=== PATIENT | female | born 1960 | race Caucasian/White ===

== ENCOUNTER → 2017-07-19 | Outpatient (CLI) | payer BC ==
--- NOTE | 2017-07-19 16:28 | MAMMOGRAPHY REPORT ---
BILATERAL DIGITAL SCREENING MAMMOGRAM TOMOSYNTHESIS WITH CAD: 07/19/2017 CLINICAL HISTORY: Routine screening. Patient has no complaints. TECHNIQUE: Breast tomosynthesis in addition to standard 2D mammography was performed. Current study was also evaluated with a Computer Aided Detection (CAD) system. COMPARISON: Comparison is made to exams dated: 07/15/2015 mammogram, 07/18/2016 mammogram, 07/14/2014 m ammogram, 07/12/2013 mammogram, 07/10/2012 mammogram, and 07/05/2011 mammogram - [facility]. BREAST COMPOSITION: There are scattered areas of fibroglandular density in both breasts. FINDINGS: No suspicious masses, calcifications, or areas of architectural distortion are noted in ei ther breast. There has been no significant interval change compared to prior exams. IMPRESSION: ACR BI-RADS CATEGORY 1: NEGATIVE There is no mammographic evidence of malignancy. A 1 year screening mammogram is recommended. The pa tient will receive written notification of the results. Approximately 10% of breast cancers are not detected with mammography. A negative mammographic report should not delay biopsy if a clinically suggestive mass is present. Pia Lopez M.D. /:07/19/2017 14:34:39 Country Printer: Flaquita Espinoza, M, [facility] letter sent: Normal 1/2 BI-RADS Code: ACR BI-RADS Category 1: Negative
== END | disposition home or self-care (01) ==
LOC: C.MAMM 09:10
PROVIDERS: ATTEND Internal Medicine
DX: Z12.31 Encounter for screening mammogram for malignant neoplasm of breast (principal)

== ENCOUNTER 2020-04-04 20:32 | Inpatient (IN) ==
[2020-04-04] MEDS ORDERED: MoRPHine SULFATE 2 MG/ML CARP IV STA (21:39)
[2020-04-04] MEDS ORDERED: ONDANSETRON INJ 2 MG/ML 2 ML VIAL IV STA (21:39)
[2020-04-04 21:59] LABS: Basophils # (auto) 0.02 K/uL (0-0.2); Basophils % (auto) 0.2 %; Eosinophils # (auto) 0.06 K/uL (0-0.5); Eosinophils % (auto) 0.5 %; Hematocrit (blood only) 41.3 % (37-47); Hemoglobin 14.1 g/dL (12.0-16.0); Immature Granulocytes # (auto) 0.03 K/uL (0.00-0.02); Immature Granulocytes % (auto) 0.2 %; Lymphocytes # (auto) 1.52 K/uL (1.2-3.4); Lymphocytes % (auto) 12.1 %; Mean Corpuscular Hemoglobin 31.1 pg (25-34); Mean Corpuscular Hgb Conc 34.1 g/dL (32-36); Mean Corpuscular Volume 91.2 fL (80-100); Monocytes % (auto) 4.8 %; Neutrophils # (auto) 10.34 K/uL (1.4-6.5); Neutrophils % (auto) 82.2 %; Platelet Count 296 K/uL (130-400); RDW Standard Deviation 40.3 fL (36.4-46.3); Red Blood Count 4.53 M/uL (4.2-5.4); White Blood Count 12.57 K/uL (4.8-10.8)
--- NOTE | 2020-04-04 21:59 | Emergency Department Note ---
History of Present Illness General Chief complaint: Abdominal Pain Stated complaint: PAIN IN ABDOMEN Time Seen by Provider: 04/04/20 21:31 History of Present Illness Maximum Pain Intensity: 7 This is a 59-year-old female that presents to the emergency department via private vehicle with complaints of "pain in abdomen". The patient states that yesterday she began with some right upper quadrant abdominal pain. No known trauma or injury. There is associated nausea. She tried [place] and it did help a little bit. She then notes that she went to bed this past evening around 11 PM and then awoke around 1:15 AM with persistence of right upper quadrant abdominal pain. She notes that she has had abdominal surgeries in the past but still has the gallbladder. She then tried Pepcid and [place] again and there was some minimal improvement. Then around 8 PM this evening the pain worsened after she ate some toast therefore prompting her arrival here today. She points to a bandlike area of pain from the epigastric region through the right upper quadrant into the back. Discomfort is an 8/10. No chest pain, shortness of breath, fevers or chills. Home Medications Home Medications Medication Instructions Recorded Confirmed Type estradiol 0.5 mg PO BID 04/04/20 04/04/20 History progesterone micronized 100 mg PO HS 04/04/20 04/04/20 History Allergies Allergy/AdvReac Type Severity Reaction Status Date / Time No Known Allergies Allergy Unverified 04/04/20 23:25 Past Med/Surg History Medical History No pertinent past medical history Surgical History Hx of abdominal surgery Social History Preferred Language: Colombian Feels Safe at Home: Yes Smoking Status: Never smoker Review of Systems A total of 10 systems reviewed and were otherwise negative Physical Exam Vital Signs Vital Signs - 24 hr 04/04/20 20:44 04/04/20 21:51 04/04/20 22:00 Temperature 36.6 C Temperature Source Oral Pulse Rate 105 H 95 H 102 H Pulse Rate from SpO2 Sensor 95 H 102 H Respiratory Rate 18 24 23 Respiratory Depth Normal Blood Pressure 162/76 H 137/79 129/70 Blood Pressure Mean 104 101 85 Pulse Oximetry 100 100 96 Oxygen Delivery Method Room Air Room Air Sepsis Recent Fever Within 48 Hours No Sepsis New/Unexplained Change in Mental Status No Sepsis Action Taken by Nursing No Action Required 04/04/20 23:00 04/04/20 23:31 04/05/20 00:00 Temperature Temperature Source Pulse Rate 94 H 106 H 101 H Pulse Rate from SpO2 Sensor 95 H 105 H 101 H Respiratory Rate 19 13 17 Respiratory Depth Blood Pressure 121/74 121/69 124/75 Blood Pressure Mean 90 91 86 Pulse Oximetry 97 95 95 Oxygen Delivery Method Sepsis Recent Fever Within 48 Hours Sepsis New/Unexplained Change in Mental Status Sepsis Action Taken by Nursing VITAL SIGNS - Vital signs and nursing notes were reviewed. Stable and afebrile. GENERAL -59-year-old female appearing her stated age who is in no acute distress. Communicates well with provider and answers questions appropriately. SKIN - Without rashes. No meningeal or petechial rash. HEAD - NC/AT. EYES - PERRL with EOMI bilaterally. Sclera anicteric. EARS - No deformities of external structures noted on gross examination bilaterally. NOSE - Midline and without cyanosis. No epistaxis or purulent drainage noted. Septum midline without deviation or septal hematoma noted. MOUTH/OROPHARYNX - Without perioral cyanosis. Buccal mucosa pink and moist and without leukoplakia. Tongue midline with equal elevation of palate bilaterally. No tonsillar hypertrophy, erythema, or exudates noted. Good dentition noted. NECK - Neck with FROM. Supple to palpation. No lymphadenopathy noted. No nuchal rigidity. LUNGS - Chest wall symmetric without accessory muscle use, intercostals retractions, or central cyanosis. Normal vesicular breath sounds CTA B/L. No wheezes, rales, or rhonchi appreciated. CARDIAC - RRR with S1/S2. No murmur, rubs, or gallops appreciated. ABDOMEN - Abdominal contour normal without pulsations or visible masses. BS normoactive all four quadrants. There is right upper quadrant abdominal tenderness to palpation. There is no rigidity. The abdomen is soft. No palpable masses, hepatosplenomegaly, or ascites noted. EXTREMITIES - No clubbing or peripheral cyanosis. PSYCH - A&O, and cooperates fully with examiner. Pt is very pleasant and interacts well with examiner. Course Administered Medications Discontinued Medications Morphine Sulfate (Morphine Sulfate) 2 mg IV NOW STA Stop: 04/04/20 21:40 Last Admin: 04/04/20 21:52 Dose: 2 mg Documented by: [id number] Ondansetron HCl (Zofran) 4 mg IV NOW STA Stop: 04/04/20 21:40 Last Admin: 04/04/20 21:52 Dose: 4 mg Documented by: [id number] Medical Decision Making Laboratory Data Result diagrams: 04/04/20 21:32 04/04/20 21:32 Lab Results 04/04/20 04/04/20 04/04/20 Range/Units 21:32 21:32 21:36 WBC 12.57 H (4.8-10.8) K/uL RBC 4.53 (4.2-5.4) M/uL Hgb 14.1 (12.0-16.0) g/dL Hct 41.3 (37-47) % MCV 91.2 (80-100) fL MCH 31.1 (25-34) pg MCHC 34.1 (32-36) g/dL RDW Std Deviation 40.3 (36.4-46.3) fL RDW Coeff of Alfredo 12.0 (11.5-14.5) % Plt Count 296 (130-400) K/uL MPV 10.0 (7.4-10.4) fL Immature Gran % (Auto) 0.2 % Neut % (Auto) 82.2 % Lymph % (Auto) 12.1 % Cobb % (Auto) 4.8 % Eos % (Auto) 0.5 % Baso % (Auto) 0.2 % Immature Gran # (Auto) 0.03 H (0.00-0.02) K/uL Neut # (Auto) 10.34 H (1.4-6.5) K/uL Lymph # (Auto) 1.52 (1.2-3.4) K/uL Cobb # (Auto) 0.60 H (0.11-0.59) K/uL Eos # (Auto) 0.06 (0-0.5) K/uL Baso # (Auto) 0.02 (0-0.2) K/uL Sodium 138 (136-145) mmol/L Potassium 3.5 (3.5-5.1) mmol/L Chloride 104 (98-107) mmol/L Carbon Dioxide 27 (21-32) mmol/L Anion Gap 7.0 (3-11) BUN 7 (7-18) mg/dl Creatinine 0.83 (0.6-1.2) mg/dl Est Cr Clr Drug Dosing 72.2 ml/min Est GFR ( Amer) 90.7 Est GFR (Non-Af Amer) 78.3 BUN/Creatinine Ratio 8.8 L (10-20) Glucose 153 H (70-99) mg/dl Calcium 8.9 (8.5-10.1) mg/dl Magnesium 2.0 (1.8-2.4) mg/dl Total Bilirubin 1.3 H (0.2-1) mg/dl AST 226 H (15-37) U/L ALT 107 H (12-78) U/L Alkaline Phosphatase 128 H (45-117) U/L Troponin I < 0.015 (0-0.045) ng/ml Total Protein 7.8 (6.4-8.2) gm/dl Albumin 3.7 (3.4-5.0) gm/dl Globulin 4.1 H (2.5-4.0) gm/dl Albumin/Globulin Ratio 0.9 (0.9-2) Lipase 141 (73-393) U/L Urine Color Dark Yellow Urine Appearance Cloudy A (Clear) Urine pH 7.5 (4.5-7.5) Ur Specific [place] 1.022 (1.000-1.030) Urine Protein Negative (Negative) Urine Glucose (UA) Negative (Negative) Urine Ketones Trace H (Negative) Urine Blood Negative (Negative) Urine Nitrite Negative (Negative) Urine Bilirubin 1+ H (Negative) Urine Urobilinogen Negative (Negative) Ur Leukocyte Esterase 1+ H (Negative) Urine WBC (Auto) 5-10 H (0-5) /hpf Urine RBC (Auto) 0-4 (0-4) /hpf U Hyaline Cast (Auto) 5-10 H (0-5) /lpf U Epithel Cells (Auto) >30 H (0-5) /lpf Urine Bacteria (Auto) Negative (Negative) Imaging Data Radiologist's Impression: SINGLE VIEW CHEST CLINICAL HISTORY: Right upper quadrant abdominal pain. FINDINGS: An AP, portable, upright chest radiograph is obtained. No prior studies are available for comparison at the time of dictation. The cardiom ediastinal silhouette is unremarkable. There is mild elevation of the right hemidiaphragm. The lungs and pleural spaces are clear. No pneumothorax is seen. The bony thorax is grossly intact. IMPRESSION: No active disease in the chest. ACT 112: Negative or not required by law. Electronically signed by: Jose Antonio Jaime M.D. 04/04/2020 10:04 PM ULTRASOUND RIGHT UPPER QUADRANT ABDOMEN CLINICAL HISTORY: Right upper quadrant abdominal pain. COMPARISON STUDY: No priors. TECHNIQUE: Real-time, grayscale, and color flow sonography of the right upper quadrant of the abdomen was performed. Images are reviewed in the transverse and longitudinal planes. FINDINGS: Liver: The liver is normal in size and echotexture. There is no intrahepatic biliary ductal dilatation. The main portal vein is patent. Gallbladder: The gallbladder is distended and there are numerous shadowing calcified gallstones. There is no gallbladder wall thickening or pericholecystic fluid. A sonographic Landry's sign is reportedly absent. The common bile duct measures up to 0.3 cm in diameter. Pancreas: Visualized portions of the pancreatic head and body are normal in appearance. The splenic vein is patent. Right kidney: Survey images of the right kidney demonstrate normal size and echotexture. There is no hydronephrosis. Ascites: None. IMPRESSION: Cholelithiasis within a distended gallbladder. There is no definitive sonographic evidence of acute cholecystitis. Clinical correlation will be required, and if there is strong clinical concern for acute cholecystitis a nuclear hepatobiliary scan could be considered. ACT 112: Negative or not required by law. Electronically signed by: Jose Antonio Jaime M.D. 04/04/2020 10:43 PM [facility] Narrative Patient was seen and evaluated as above in room C 12. Review was performed of nursing notes and vital signs. After obtaining a thorough history and physical examination the above work up was performed. She presents to us today with right upper quadrant/epigastric abdominal discomfort. This is worse postprandia lly. No chest pain, shortness of breath, fevers or chills. There is right upper quadrant abdominal tenderness on examination. IV access was established. Labs were drawn. She was medicated with IV morphine and Zofran. There is mild leukocytosis of 12.57 without anemia. No emergent metabolic disturbance. Glucose 153 with T bili at 1.3, with elevation of AST and ALT. Urinalysis does not suggest infection. Ultrasound was obtained of the gallbladder which shows cholelithiasis with a distended gallbladder. No definite sonographic evidence of acute cholecystitis. However, there is clinical concern for developing gallbladder etiology therefore I do believe that further evaluation in the inpatient setting is warranted. Patient was amenable to staying. A chest x-ray was also obtained and was negative. An EKG was also obtained given the location of the discomfort and this reveals normal sinus rhythm at a rate of 96 bpm. No ectopy or ischemic change. No previous for comparison. Case discussed with the hospitalist. Please refer to further documentation regarding her stay. Case was discussed with the attending physician. GCS: 15 In the evaluation and treatment of this patient, the following differential diagnoses were considered: ASC, [place], Pneumonia, GERD, Cholecystitis, Ascending Cholangitis, Cholydocholithiasis, Bowel Obstruction, PE, Amongst Others. Impression & Plan Abdominal pain, acute, right upper quadrant, Elevated LFTs, Total bilirubin, elevated Discharge Plan Visit Data Chief Complaint: Abdominal Pain Stated Complaint: PAIN IN ABDOMEN ED Provider: Jsoe Antonio Lino ED Midlevel Provider: Elvis Leong Discharge Problem: Abdominal pain, acute, right upper quadrant, Elevated LFTs, Total bilirubin, elevated Patient Disposition: Admitted As Inpatient Condition: Good Forms Stand Alone Forms: My [facility] [address], Important Visit Information Prescriptions Prescriptions: No Action estradiol 0.5 mg tablet 0.5 mg PO BID RF: 0 progesterone micronized 100 mg capsule 100 mg PO HS RF: 0 Referrals Referrals: Vidal Ordaz Jr, DO [Primary Care Provider] -
[2020-04-04 22:04] LABS: Appearance Urine Cloudy (Clear); Bacteria Urine Automated Negative (Negative); Blood Urine Negative (Negative); Color Urine Dark Yellow; Epithelial Cell Urine Auto >30 /lpf (0-5); Glucose Urine UA Negative (Negative); Ketones Urine Trace (Negative); Leukocyte Esterase Urine 1+ (Negative); Nitrite Urine Negative (Negative); Protein Urine Negative (Negative); RBC Urine Automated 0-4 /hpf (0-4); Specific Gravity Urine 1.022 (1.000-1.030); Urobilinogen Urine Negative (Negative); pH Urine 7.5 (4.5-7.5)
[2020-04-04 22:05] LABS: Bilirubin Urine 1+ (Negative)
--- NOTE | 2020-04-04 22:05 | XRay Report ---
SINGLE VIEW CHEST CLINICAL HISTORY: Right upper quadrant abdominal pain. FINDINGS: An AP, portable, upright chest radiograph is obtained. No prior studies are available for c omparison at the time of dictation. The cardiomediastinal silhouette is unremarkable. There is mild elevation of the right hemidiaphragm. The lungs and pleural spaces are clear. No pneumothorax is seen . The bony thorax is grossly intact. IMPRESSION: No active disease in the chest. ACT 112: Negative or not required by law. Electronically signed by: Jose Antonio Jaime M.D. 04/04/2020 10:04 PM
[2020-04-04 22:06] LABS: Alanine Aminotransferase 107 U/L (12-78); Albumin Level 3.7 gm/dl (3.4-5.0); Aspartate Aminotransferase 226 U/L (15-37); BUN Creatinine Ratio 8.8 (10-20); Blood Urea Nitrogen 7 mg/dl (7-18); Calcium 8.9 mg/dl (8.5-10.1); Carbon Dioxide 27 mmol/L (21-32); Chloride 104 mmol/L (98-107); Creatinine Clr Calc Pharmacy 72.2 ml/min; Est GFR (African American) 90.7; Est GFR (Non-African American) 78.3; Glucose 153 mg/dl (70-99); Lipase 141 U/L (73-393); Potassium 3.5 mmol/L (3.5-5.1); Sodium 138 mmol/L (136-145)
[2020-04-04 22:06] LABS: Ictotest Urine Positive (Negative)
[2020-04-04 22:11] LABS: Albumin Globulin Ratio 0.9 (0.9-2); Alkaline Phosphatase 128 U/L (45-117); Bilirubin,Total 1.3 mg/dl (0.2-1); Globulin 4.1 gm/dl (2.5-4.0); Total Protein 7.8 gm/dl (6.4-8.2); Troponin I < 0.015 ng/ml (0-0.045)
--- NOTE | 2020-04-04 22:44 | Ultrasound Report ---
ULTRASOUND RIGHT UPPER QUADRANT ABDOMEN CLINICAL HISTORY: Right upper quadrant abdominal pain. COMPARISON STUDY: No priors. TECHNIQUE: Real-time, grayscale, and color flow sonography of the right upper quadrant of the abdomen was performed. Images are reviewed in the transverse and longitudinal planes. FINDINGS: Liver: The liver is normal in size and echotexture. There is no intrahepatic biliary ductal dilatatio n. The main portal vein is patent. Gallbladder: The gallbladder is distended and there are numerous shadowing calcified gallstones. Ther e is no gallbladder wall thickening or pericholecystic fluid. A sonographic Landry's sign is reported ly absent. The common bile duct measures up to 0.3 cm in diameter. Pancreas: Visualized portions of the pancreatic head and body are normal in appearance. The splenic v ein is patent. Right kidney: Survey images of the right kidney demonstrate normal size and echotexture. There is no hydronephrosis. Ascites: None. IMPRESSION: Cholelithiasis within a distended gallbladder. There is no definitive sonographic evidenc e of acute cholecystitis. Clinical correlation will be required, and if there is strong clinical conc celeste for acute cholecystitis a nuclear hepatobiliary scan could be considered. ACT 112: Negative or not required by law. Electronically signed by: Jose Antonio Jaime M.D. 04/04/2020 10:43 PM
--- NOTE | 2020-04-05 00:52 | Surgery Consultation ---
Date of Consultation April 05, 2020 Assessment & Plan (1) Cholelithiases: -pt. to be admitted by medicine: -as cholecystitis not conformed on US they hav ordered HIDA scan -due to elevated LFTS MRCP has been ordered to evaluate for choledocholithiasis -npo status -IVF for hydration -pending above studies with plan for cholecystectomy Supervising Physician Co-Signing Physician Notes Patient seen and examined, labs and imaging reviewed, agree with above. 59-year-old otherwise healthy female presented to the emergency department with epigastric and right upper quadrant abdominal pain. Ultrasound revealed cholelithiasis with likely cholecystitis. She was admitted to the medicine service and due to elevation in her transaminases an MRCP was ordered which showed no filling defect but a slightly dilated common bile duct. Her repeat liver enzymes this morning were trending upward. On exam she is afebrile with stable vitals. Her abdomen is soft, tender to palpation in the right upper quadrant with negative Landry sign, no guarding. Her ALT and AST are up trending and her T bili is stable. After discussion of the case with GI, we will plan for an ERCP by GI followed by laparoscopic cholecystectomy with possible cholangiogram. Plan for laparoscopic cholecystectomy with possible cholangiogram. GI will perform an ERCP prior to this. The risk of the procedure were discussed to include but not limited to bleeding, infection, retained stone, bile leak, conversion to open, damage to surrounding structures including common bile duct, need for future or more extensive surgery, and the risk of anesthesia The diagnosis, details of the procedure and recovery, and plan of care discussed the patient, all questions were answered, the patient expressed understanding and agrees the plan of care as stated History of Present Illness History of Present Illness 59 year old female was in usual sate of health until yesterday when she felt some epigastric pain that she thought was GERD. She took an antacid with some relief, but her pain became progressively worse. The pain is in the epigastric area and RUQ and radiate to right shoulder. In the ED, GB US showed gallstones without definite cholecystitis. LFTs were noted to be elevated. Lipase is noted to be normal. Allergies Allergy/AdvReac Type Severity Reaction Status Date / Time No Known Allergies Allergy Unverified 04/04/20 23:25 Home Medications Home Medications Medication Instructions Recorded Confirmed Type estradiol 0.5 mg PO BID 04/04/20 04/04/20 History progesterone micronized 100 mg PO HS 04/04/20 04/04/20 History Patient History Medical History No pertinent past medical history Surgical History Hx of abdominal surgery Social History Preferred Language: Macedonian Communication Ability: Effective Road Driver Required: No Beliefs That Will Affect Care: None Current Living Situation: Spouse Feels Safe at Home: Yes Safety Concerns: Feels Safe At This Time Smoking Status: Never smoker Do You Dip or Chew Tobacco: No ; Hx Alcohol Use: Yes Alcohol type: beer Hx Substance Use: No Review of Systems Constitutional: no fever and no chills Eyes: no diplopia Ear, Nose, Mouth, Throat: no ear pain Respiratory: no cough and no dyspnea Cardiovascular: no chest pain Gastrointestinal: + abdominal pain and + nausea; no vomiting Genitourinary: no dysuria Musculoskeletal: no back pain Integumentary: no rash Neurologic: no localized weakness Physical Exam Constitutional: well developed and well nourished; no acute distress Eyes: no conjunctival abnormality no jaundice ENMT: Ears: no hearing impairment no sublingual jaundice Neck: trachea midline Respiratory: normal respiratory effort, lungs clear to auscultation Cardiovascular: Rate/Rhythm: regular rate and regular rhythm Vessels: posterior tibial pulses present and radial pulses present Gastrointestinal (Abdomen): Percussion/Palpation: + abdomen tender (RUQ and epigatsric regions; no rebound tenderness) and abdomen soft Musculoskeletal: no calf tenderess Skin: no rashes, warm and dry Neurologic: moves all extremities Psychiatric: A+Ox3, euthymic affect Results & Data Vital Signs (Past 12 Hours) Vital Signs Temp Pulse Resp BP Pulse Ox 04/05/20 00:00 101 H 17 124/75 95 04/04/20 23:31 106 H 13 121/69 95 04/04/20 23:00 94 H 19 121/74 97 04/04/20 22:00 102 H 23 129/70 96 04/04/20 21:51 95 H 24 137/79 100 04/04/20 20:44 36.6 C 105 H 18 162/76 H 100 PG Care Time/CCT Total # of Minutes Spent Total Time Spent with Patient: Total time spent is greater than 50% in coordination of care (as documented) at patient's floor/unit and/or counseling patient: Coding Level of Care Code 00032 Inpt Consult Level 5 Diagnoses Cholelithiases K80.20
[2020-04-05] MEDS ORDERED: MoRPHine SULFATE 4 MG/ML 1 ML CARP\\VIAL IV PRN ×2 (02:08→15:55)
[2020-04-05] MEDS ORDERED: PIPERACILL/TAZOBAC CONSULT ACTIVE PRN (02:08)
[2020-04-05] MEDS ORDERED: PIPERACILLIN/TAZOBACTAM 3.375 GM in DEXTROSE 5% 100 ML IV ONE (02:30)
[2020-04-05] MEDS: NSS + 20MEQ KCL 20 MEQ/1,000 ML BAG IV SCH ×2 (02:39→16:34)
--- NOTE | 2020-04-05 04:40 | History & Physical Report ---
Date of Service April 05, 2020 Assessment & Plan (1) Abdominal pain, acute, right upper quadrant: Acute right upper quadrant abdominal pain/distended gallbladder on imaging/elevated transaminases and bilirubin/cholelithiasis on imaging/ with leukocytosis- Patient has undergone gallbladder ultrasound which showed cholelithiasis and distended gallbladder. MRCP demonstrates similar findings, without abnormal findings in biliary ductal system. Hold on ordering NM HIDA scan. NPO NSS + KCl 20 mEq 100 mils per hour. Famotidine 20 mg IV every 12 hours. Zosyn 3.375 mg IV every 8 hours Zofran 4 mg IV every 6 hours PRN Acetaminophen 0.15 mg IV every 8 hours PRN mild pain or temperature. Consult general surgery. Consult gastroenterology. Present on Admission?: Yes (2) Gallbladder anomaly: See above Present on Admission?: Yes (3) Elevated LFTs: See above Present on Admission?: Yes (4) Total bilirubin, elevated: See above Present on Admission?: Yes (5) Cholelithiases: See above Present on Admission?: Yes (6) Leukocytosis: See above Present on Admission?: Yes (7) Hyperglycemia: Blood sugar 153 upon admission. We will check hemoglobin A1c Present on Admission?: Yes Admission and Anticipated Discharge Date Admission Date: April 05, 2020 Anticipated date of discharge: 04/07/20 History of Present Illness Chief Complaint: The patient presents to the emergency department with complaint of pain in epigastric area and right upper quadrant of abdomen that began the previous evening, accompanied by nausea without vomiting. Primary Care Provider: Vidal Ordaz Jr, DO .The patient is a 59-year-old female with a past medical history including HRT. She presents to the emergency department symptoms as noted above. She describes the pain is a worse that she is never experienced, including that of delivery. She had no improvement with Pepcid or [place] because of worsening pain, presented emergency department for assessment. In the emergency department, patient underwent work-up including laboratories with the following significant abnormalities: WBC 12.57, glucose 153, total bilirubin 1.3, AST 226, ALT 107, alk phos 128 and globulin 4.1. Imaging studies included a normal chest x-ray and a gallbladder ultrasound which had impression of cholelithiasis within a distended gallbladder, with no definitive sonographic evidence of acute cholecystitis. Patient then underwent an MRCP, which also demonstrated cholelithiasis within a distended gallbladder, and did not find obstruction in the biliary ductal system. Allergies Allergy/AdvReac Type Severity Reaction Status Date / Time No Known Allergies Allergy Unverified 04/04/20 23:25 Home Medications Home Medications Medication Instructions Recorded Confirmed Type estradiol 0.5 mg PO BID 04/04/20 04/04/20 History progesterone micronized 100 mg PO HS 04/04/20 04/04/20 History Past Med/Surg History Medical History No pertinent past medical history Surgical History Hx of abdominal surgery Social History Preferred Language: Malian Communication Ability: Effective Chief Investment Officer Required: No Beliefs That Will Affect Care: None Current Living Situation: Spouse Feels Safe at Home: Yes Safety Concerns: Feels Safe At This Time Smoking Status: Never smoker Hx Alcohol Use: Yes Alcohol type: beer Hx Substance Use: No Review of Systems Review of Systems: The patient denies chest pain, palpitations, shortness of breath, dyspnea on exertion, cough, lower extremity swelling, sore throat, fevers, chills, sweats, vomiting, blood in urine or stool, dysuria, urinary frequency or urgency, lightheadedness, dizziness, headache, memory loss, loss of consciousness, rash, abnormal bruising or bleeding, imbalance, focal or generalized weakness, numbness or tingling in arms or legs, generalized arthralgias or myalgias, back or neck pain, or night sweats. The review of systems is otherwise negative other than for that already noted above, and at least 10 systems have been reviewed. Physical Exam Physical Exam: The patient is awake, alert and oriented 3, well developed and well nourished, normocephalic and atraumatic, lying in bed and in no acute distress, after receiving IV Dilaudid. HEENT--PERRL, EOMI, mucous membranes and oropharynx. Neck--supple. No JVD. No bruits. Thyroid normal, trachea midline, no adenopathy. Heart--normal S1 and S2. No murmurs, rubs or gallops. Lungs--clear bilaterally, no respiratory distress, no accessory muscle use. Abdomen--normal bowel sounds and soft. Nondistended. Nontender after receiving IV Dilaudid Extremities--no cyanosis or clubbing. No edema. Dermatologic--normal skin turgor, normal color, no abnormal lymph nodes, no rash. Neurologic--cranial nerves II through XII grossly intact. Rheumatologic--normal range of motion. Psychiatric--normal affect. Results & Data Results & Data ([facility]) Vital Signs (Past 12 Hours) Vital Signs Temp Pulse Pulse Resp BP BP Pulse Ox 04/05/20 02:13 98.4 F 95 H 16 124/75 96 04/05/20 01:38 103 H 18 109/69 97 04/05/20 01:00 97 H 20 115/72 04/05/20 00:31 104 H 18 115/84 94 04/05/20 00:00 101 H 17 124/75 95 04/04/20 23:31 106 H 13 121/69 95 04/04/20 23:00 94 H 19 121/74 97 04/04/20 22:00 102 H 23 129/70 96 04/04/20 21:51 95 H 24 137/79 100 04/04/20 20:44 97.9 F 105 H 18 162/76 H 100 Laboratory Results Laboratory Results WBC 12.57 K/uL (4.8-10.8) H 04/04/20 21:32 RBC 4.53 M/uL (4.2-5.4) 04/04/20 21:32 Hgb 14.1 g/dL (12.0-16.0) 04/04/20 21:32 Hct 41.3 % (37-47) 04/04/20 21:32 MCV 91.2 fL (80-100) 04/04/20 21:32 MCH 31.1 pg (25-34) 04/04/20 21: MCHC 34.1 g/dL (32-36) 04/04/20 21:32 RDW Std Deviation 40.3 fL (36.4-46.3) 04/04/20 21:32 RDW Coeff of Alfredo 12.0 % (11.5-14.5) 04/04/20 21:32 Plt Count 296 K/uL (130-400) 04/04/20 21:32 MPV 10.0 fL (7.4-10.4) 04/04/20 21:32 Immature Gran % (Auto) 0.2 % 04/04/20 21:32 Neut % (Auto) 82.2 % 04/04/20 21:32 Lymph % (Auto) 12.1 % 04/04/20:32 [place] % (Auto) 4.8 % 04/04/20 21:32 Eos % (Auto) 0.5 % 04/04/20:32 Baso % (Auto) 0.2 % 04/04/20: Immature Gran # (Auto) 0.03 K/uL (0.00-0.02) H 04/04/20 21:32 Neut # (Auto) 10.34 K/uL (1.4-6.5) H 04/04/20:32 Lymph # (Auto) 1.52 K/uL (1.2-3.4) 04/04/20 21:32 [place] # (Auto) 0.60 K/uL (0.11-0.59) H 04/04/20 21:32 Eos # (Auto) 0.06 K/uL (0-0.5) 04/04/20: Baso # (Auto) 0.02 K/uL (0-0.2) 04/04/20 21:32 Sodium 138 mmol/L (136-145) 04/04/20 21:32 Potassium 3.5 mmol/L (3.5-5.1) 04/04/20: Chloride 104 mmol/L (98-107) 04/04/20: Carbon Dioxide 27 mmol/L (21-32) 04/04/20 21:32 Anion Gap 7.0 (3-11) 04/04/20 21:32 BUN 7 mg/dl (7-18) 04/04/20:32 Creatinine 0.83 mg/dl (0.6-1.2) 04/04/20: Est Cr Clr Drug Dosing 72.2 ml/min 04/04/20 21:32 Est GFR ( Amer) 90.7 04/04/20 21:32 Est GFR (Non-Af Amer) 78.3 04/04/20 21:32 BUN/Creatinine Ratio 8.8 (10-20) L 04/04/20 21:32 Glucose 153 mg/dl (70-99) H 04/04/20 21:32 Calcium 8.9 mg/dl (8.5-10.1) 04/04/20 21:32 Magnesium 2.0 mg/dl (1.8-2.4) 04/04/20 21:32 Total Bilirubin 1.3 mg/dl (0.2-1) H 04/04/20 21:32 AST 226 U/L (15-37) H 04/04/20 21:32 ALT 107 U/L (12-78) H 04/04/20 21:32 Alkaline Phosphatase 128 U/L (45-117) H 04/04/20 21:32 Troponin I < 0.015 ng/ml (0-0.045) 04/04/20 21:32 Total Protein 7.8 gm/dl (6.4-8.2) 04/04/20 21:32 Albumin 3.7 gm/dl (3.4-5.0) 04/04/20 21:32 Globulin 4.1 gm/dl (2.5-4.0) H 04/04/20 21:32 Albumin/Globulin Ratio 0.9 (0.9-2) 04/04/20 21:32 Lipase 141 U/L (73-393) 04/04/20 21:32 Urine Color Dark Yellow 04/04/20 21:36 Urine Appearance Cloudy (Clear) A 04/04/20 21:36 Urine pH 7.5 (4.5-7.5) 04/04/20 21:36 Ur Specific [place] 1.022 (1.000-1.030) 04/04/20 21:36 Urine Protein Negative (Negative) 04/04/20 21:36 Urine Glucose (UA) Negative (Negative) 04/04/20 21:36 Urine Ketones Trace (Negative) H 04/04/20 21:36 Urine Blood Negative (Negative) 04/04/20 21:36 Urine Nitrite Negative (Negative) 04/04/20 21:36 Urine Bilirubin 1+ (Negative) H 04/04/20 21:36 Urine Urobilinogen Negative (Negative) 04/04/20 21:36 Ur Leukocyte Esterase 1+ (Negative) H 04/04/20 21:36 Urine WBC (Auto) 5-10 /hpf (0-5) H 04/04/20 21:36 Urine RBC (Auto) 0-4 /hpf (0-4) 04/04/20 21:36 U Hyaline Cast (Auto) 5-10 /lpf (0-5) H 04/04/20 21:36 U Epithel Cells (Auto) >30 /lpf (0-5) H 04/04/20 21:36 Urine Bacteria (Auto) Negative (Negative) 04/04/20 21:36 Diagnostic Findings [place], [place] [phone] XRay Report Patient: KARIE ROTH Date: 04/04/20 MR#: [id number]: [address] Acct ID:[id number]: Date: 1960[facility] Zip: [place] [address] Age: 59Location: ED Sex: F Room/Bed: Att Phy:Diagnosis: PAIN IN ABDOMEN [place] Phy: Vidal Ordaz Jr, DOService Date: 04/04/20 Fam Phy:Interpreting Phy: Jose Antonio Jaime MD Admit Phy: Ordering Phy: Elvis Leong PA-C cc: ~ SINGLE VIEW CHEST CLINICAL HISTORY: Right upper quadrant abdominal pain. FINDINGS: An AP, portable, upright chest radiograph is obtained. No prior studies are available for comparison at the time of dictation. The cardiomediastinal silhouette is unremarkable. There is mild elevation of the right hemidiaphragm. The lungs and pleural spaces are clear. No pneumothorax is seen. The bony thorax is grossly intact. IMPRESSION: No active disease in the chest. ACT 112: Negative or not required by law. Electronically signed by: Jose Antonio Jaime M.D. 04/04/2020 10:04 PM Dictated: 04/04/202200 Transcribed: 04/04/202200 [place], [place] [phone] Ultrasound Report Patient: KARIE ROTH Date: 04/04/20 MR#: [id number]: [address] Acct ID:[id number]: Date: 1960[facility] Zip: [place] [address] Age: 59Location: ED Sex: F Room/Bed: Att Phy:Diagnosis: PAIN IN ABDOMEN [place] Phy: Vidal Ordaz Jr, DOService Date: 04/04/20 [facility] Phy:Interpreting Phy: Jose Antonio Jaime MD Admit Phy: Ordering Phy: Elvis Leong PA-C cc: ~ ULTRASOUND RIGHT UPPER QUADRANT ABDOMEN CLINICAL HISTORY: Right upper quadrant abdominal pain. COMPARISON STUDY: No priors. TECHNIQUE: Real-time, grayscale, and color flow sonography of the right upper quadrant of the abdomen was performed. Images are reviewed in the transverse and longitudinal planes. FINDINGS: Liver: The liver is normal in size and echotexture. There is no intrahepatic biliary ductal dilatation. The main portal vein is patent. Gallbladder: The gallbladder is distended and there are numerous shadowing calcified gallstones. There is no gallbladder wall thickening or pericholecystic fluid. A sonographic Landry's sign is reportedly absent. The common bile duct measures up to 0.3 cm in diameter. Pancreas: Visualized portions of the pancreatic head and body are normal in appearance. The splenic vein is patent. Right kidney: Survey images of the right kidney demonstrate normal size and echotexture. There is no hydronephrosis. Ascites: None. IMPRESSION: Cholelithiasis within a distended gallbladder. There is no definitive sonographic evidence of acute cholecystitis. Clinical correlation will be required, and if there is strong clinical concern for acute cholecystitis a nuclear hepatobiliary scan could be considered. ACT 112: Negative or not required by law. Electronically signed by: Jose Antonio Jaime M.D. 04/04/2020 10:43 PM Dictated: 04/04/202240 Transcribed: 04/04/20 224 [facility] Patient: KARIE ROTH (Female) : 64 Status: ER Date: 04/05/20 02:05 Room #: a12 History: Abdominal pain, abnormal LFT, acute cholecystitis, tsd PT was located in the ER and was transferred to [facility] Slices: [phone] Priors: Tech: Cristóbal Hernandez @ Exams: MRCP Accession Numbers: [id number] Preliminary Findings Only See Final Report For Complete Findings MRCP : Subcentimeter cholelithiasis noted in the fully distended gallbladder. No choledocholithiasis or biliary dilatation. The visible left and right intrahepatic biliary ducts are unremarkable. The cystic duct is unremarkable. The pancreatic duct is unremarkable. Incidental trace perihepatic fluid in the right upper quadrant. The kidneys, spleen and pancreas are otherwise unremarkable. Radiologist: Desmond Tavares MD Study ready at 02:09 and initial results transmitted at 02:19 *This report constitutes a preliminary interpretation only. Non-acute findings felt to be unrelated to the clinical presentation may not be discussed in this report. The study will be interpreted and a final report will be generated by the local Radiologist the following shift. To reach the hospital radiology department call [phone]. If a discrepancy is found between the preliminary and final interpretations of this study, please notify us via our Client Portal at [email or web address], under QA Exams.You can also fax this report with a description of the discrepancy, or include the final report, to our daytime fax number [phone].If faxing, please indicate the severity of discrepancy using one of the following categories: [ ] 1 - Agree/Informational [ ] 2 - Unlikely to Affect Management [ ] 3 - Possible Eventual Change of Management [ ] 4 - Probable Immediate Change of Management For all other patient related information, please fax us at [phone]. [id number] Code Status & VTE Plan Code Status Full code VTE Prophylaxis Plan VTE Prophylaxis will be ordered: Yes PG Care Time/CCT Total # of Minutes Spent Total Time Spent with Patient: Total time spent is greater than 50% in coordination of care (as documented) at patient's floor/unit and/or counseling patient: Coding Level of Care Code 15484 Initial Inpt Care Lvl 3 Diagnoses Abdominal pain, acute, right upper quadrant R10.11 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
[2020-04-05 05:53] LABS: Basophils # (auto) 0.01 K/uL (0-0.2); Basophils % (auto) 0.2 %; Eosinophils # (auto) 0.07 K/uL (0-0.5); Eosinophils % (auto) 1.1 %; Hematocrit (blood only) 35.4 % (37-47); Hemoglobin 12.1 g/dL (12.0-16.0); Immature Granulocytes # (auto) 0.01 K/uL (0.00-0.02); Immature Granulocytes % (auto) 0.2 %; Lymphocytes # (auto) 1.52 K/uL (1.2-3.4); Lymphocytes % (auto) 22.9 %; Mean Corpuscular Hemoglobin 31.3 pg (25-34); Mean Corpuscular Hgb Conc 34.2 g/dL (32-36); Mean Corpuscular Volume 91.7 fL (80-100); Mean Platelet Volume 9.5 fL (7.4-10.4); Monocytes # (auto) 0.52 K/uL (0.11-0.59); Monocytes % (auto) 7.8 %; Neutrophils # (auto) 4.52 K/uL (1.4-6.5); Neutrophils % (auto) 67.8 %; Platelet Count 257 K/uL (130-400); RDW Coefficient of Variation 12.3 % (11.5-14.5); RDW Standard Deviation 41.7 fL (36.4-46.3); Red Blood Count 3.86 M/uL (4.2-5.4); White Blood Count 6.65 K/uL (4.8-10.8)
[2020-04-05 06:02] LABS: Prothrombin Time 10.5 Seconds (9.0-12.0)
[2020-04-05 06:32] LABS: Albumin Globulin Ratio 0.8 (0.9-2); Bilirubin,Total 1.3 mg/dl (0.2-1); Calcium 8.4 mg/dl (8.5-10.1); Creatinine Clr Calc Pharmacy 79.4 ml/min; Est GFR (African American) 104.2; Est GFR (Non-African American) 89.9; Globulin 3.6 gm/dl (2.5-4.0); Potassium 4.1 mmol/L (3.5-5.1); Total Protein 6.6 gm/dl (6.4-8.2)
--- NOTE | 2020-04-05 06:47 | Anesthesiology Consultation ---
Date of Service April 05, 2020 Assessment & Plan (1) Encounter for pre-operative examination: Chart Review Chart Review: Acceptable Risk for Surgery and Patient NOT seen in Pre Admission Testing Consults Requested none History Surgery Operation Date: 04/05/20 08:00 Proposed Procedures p Laparoscopic Cholecystectomy - Olayinka Muse DO, SYDNEE Height/Weight Height: 5 ft 2 in Weight: 74.7 kg Allergies Allergy/AdvReac Type Severity Reaction Status Date / Time No Known Allergies Allergy Unverified 04/04/20 23:25 Medications Home Medications Medication Instructions Recorded Confirmed Last Taken estradiol 0.5 mg PO BID 04/04/20 04/04/20 04/04/20 progesterone micronized 100 mg PO HS 04/04/20 04/04/20 04/03/20 Active Medications Generic Name Dose Route Start Last Admin Trade Name Freq PRN Reason Stop Dose Admin Famotidine 20 mg/ Syringe 5 mls @ 2.5 mls/min 04/05/20 09:00 04/05/20 08:30 IV 05/05/20 08:59 2.5 mls/min Q12 MISAEL Administration Potassium Chloride/Sodium Chloride 20 meq in 1,000 mls @ 100 mls/hr 04/05/20 02:08 04/05/20 12:09 Normal Saline W/20 Meq Kcl IV 05/05/20 02:07 Infused .Q10H MISAEL Infusion Piperacillin Sod/Tazobactam 115 mls @ 28.75 mls/hr 04/05/20 08:00 04/05/20 12:09 Sod 3.375 gm/ Dextrose IV 04/15/20 07:59 Infused Q8H MISAEL Infusion Protocol Social History Smoking Status: Never smoker Do You Dip or Chew Tobacco: No Hx Alcohol Use: Yes Alcohol type: beer alcohol intake frequency: a few times a week Hx Substance Use: No Physical Exam Vital Signs Last Vital Signs Temp 36.7 C 04/05/20 07:11 Pulse 81 04/05/20 07:11 Resp 18 04/05/20 07:11 BP 107/70 04/05/20 07:11 Pulse Ox 97 04/05/20 07:15 Testing Laboratory Results 04/05/20 05:41 04/05/20 05:41 PT 10.5 Seconds (9.0-12.0) 04/05/20 05:41 INR 1.0 (0.9-1.1) 05/17/20 05:41 Urine Color Dark Yellow 04/04/20 21:36 Urine Appearance Cloudy (Clear) A 04/04/20 21:36 Urine pH 7.5 (4.5-7.5) 04/04/20 21:36 Ur Specific [place] 1.022 (1.000-1.030) 04/04/20 21:36 Urine Protein Negative (Negative) 04/04/20 21:36 Urine Glucose (UA) Negative (Negative) 04/04/20 21:36 Urine Ketones Trace (Negative) H 04/04/20 21:36 Urine Nitrite Negative (Negative) 04/04/20 21:36 Ur Leukocyte Esterase 1+ (Negative) H 04/04/20 21:36 Urine WBC (Auto) 5-10 /hpf (0-5) H 04/04/20 21:36 Urine RBC (Auto) 0-4 /hpf (0-4) 04/04/20 21:36 U Hyaline Cast (Auto) 5-10 /lpf (0-5) H 04/04/20 21:36 U Epithel Cells (Auto) >30 /lpf (0-5) H 04/04/20 21:36 Urine Bacteria (Auto) Negative (Negative) 04/04/20 21:36 Electrocardiogram Date: 04/04/20 Findings: + NSR @ (96) Normal sinus rhythm Normal ECG No previous ECGs available
[2020-04-05] MEDS ORDERED: ACETAMINOPHEN 1000 MG/100 ML IV IV ONE (07:43)
[2020-04-05] MEDS ORDERED: SUGAMMADEX SODIUM 200 MG/2 ML VIAL IV ONE (07:43)
[2020-04-05] MEDS: FAMOTIDINE 20 MG in SYRINGE 3 ML IV SCH ×2 (08:30→20:26)
[2020-04-05] MEDS: PIPERACILLIN/TAZOBACTAM 3.375 GM in DEXTROSE 5% 100 ML IV SCH ×3 (08:30→23:16)
--- NOTE | 2020-04-05 09:16 | Gastrointestinal Consultation ---
Date of Consultation April 05, 2020 Assessment & Plan (1) Elevated LFTs: In view of initial leukocytosis with chills, rising LFTs and gallstones, she is high probability for choledocholithiasis with possible cholangitis. Plan for ERCP combined with Lap susan today. I explained risk, benefit and alternatives including risk of pancreatitis, she agreed. (2) Total bilirubin, elevated: (3) Cholelithiases: History of Present Illness Attending Physician: Gillian Javier DO 59 years old female patient with no significant medical history presented to the hospital with RUQ abdominal pain, sharp, radiates to the back, constant, started last night, associated with nausea, no vomiting, also reports chills. Had similar attack in the past. She was found with elevated LFTs and bilirubin and gallstones on imaging. Suspected choledocholithiasis. Allergies Allergy/AdvReac Type Severity Reaction Status Date / Time No Known Allergies Allergy Unverified 04/04/20 23:25 Home Medications Home Medications Medication Instructions Recorded Confirmed Type estradiol 0.5 mg PO BID 04/04/20 04/04/20 History progesterone micronized 100 mg PO HS 04/04/20 04/04/20 History Patient History Medical History No pertinent past medical history Surgical History Hx of abdominal surgery Social History Preferred Language: Turkmen Communication Ability: Effective Creative Art Therapist Required: No Beliefs That Will Affect Care: None Current Living Situation: Spouse Feels Safe at Home: Yes Safety Concerns: Feels Safe At This Time Smoking Status: Never smoker Do You Dip or Chew Tobacco: No ; Hx Alcohol Use: Yes Alcohol type: beer Hx Substance Use: No Review of Systems Constitutional: no fever, no chills, no fatigue and no weight loss Eyes: no eye pain and no worsening vision Ear, Nose, Mouth, Throat: no tinnitus, no dizziness, no nasal discharge and no epistaxis Respiratory: no cough, no dyspnea, no dyspnea on exertion and no wheezing Cardiovascular: no chest pain, no orthopnea, no palpitations and no edema Gastrointestinal: as per Subjective / HPI Genitourinary: no dysuria, no urinary frequency, no urinary incontinence and no hematuria Musculoskeletal: no stiffness and no myalgia Neurologic: no localized weakness, no paralysis, no tremor(s) and no headache(s) Endocrine: no polydipsia and no polyuria Hematologic / Lymphatic: no easy bleeding and no night sweats Physical Exam Constitutional: + well hydrated, cooperative and comfortable Eyes: PERRL, conjunctivae normal, anicteric sclerae ENMT: external ear and nose normal, oropharynx normal Neck: normal visual inspection and trachea midline Respiratory: normal respiratory effort, lungs clear to auscultation Auscultation: no wheezes Cardiovascular: RRR, no murmur, no edema Gastrointestinal (Abdomen): normal bowel sounds, soft, nontender, no hepatosplenomegaly Musculoskeletal: no cyanosis or clubbing, extremities motor strength 5/5 Skin: no rashes, warm and dry Neurologic: awake; no focal motor deficits Motor/Sensory: no tremor Results & Data ([facility]) Vital Signs (Past 12 Hours) Vital Signs Temp Pulse Pulse Resp BP BP Pulse Ox 04/05/20 07:15 04/05/20 07:11 36.7 C 81 18 107/70 97 04/05/20 02:13 36.9 C 95 H 16 124/75 96 04/05/20 01:38 103 H 18 109/69 97 04/05/20 01:00 97 H 20 115/72 04/05/20 00:31 104 H 18 115/84 94 04/05/20 00:00 101 H 17 124/75 95 04/04/20 23:31 106 H 13 121/69 95 04/04/20 23:00 94 H 19 121/74 97 04/04/20 22:00 102 H 23 129/70 96 04/04/20 21:51 95 H 24 137/79 100 Pulse Ox 04/05/20 07:15 97 04/05/20 07:11 04/05/20 02:13 04/05/20 01:38 04/05/20 01:00 04/05/20 00:31 04/05/20 00:00 04/04/20 23:31 04/04/20 23:00 04/04/20 22:00 04/04/20 21:51 Laboratory Results Laboratory Results - last 24 hr 04/04/20 04/04/20 04/04/20 21:32 21:32 21:36 WBC 12.57 H RBC 4.53 Hgb 14.1 Hct 41.3 MCV 91.2 MCH 31.1 MCHC 34.1 RDW Std Deviation 40.3 RDW Coeff of Alfredo 12.0 Plt Count 296 MPV 10.0 Immature Gran % (Auto) 0.2 Neut % (Auto) 82.2 Lymph % (Auto) 12.1 [place] % (Auto) 4.8 Eos % (Auto) 0.5 Baso % (Auto) 0.2 Immature Gran # (Auto) 0.03 H Neut # (Auto) 10.34 H Lymph # (Auto) 1.52 [place] # (Auto) 0.60 H Eos # (Auto) 0.06 Baso # (Auto) 0.02 PT INR Sodium 138 Potassium 3.5 Chloride 104 Carbon Dioxide 27 Anion Gap 7.0 BUN 7 Creatinine 0.83 Est Cr Clr Drug Dosing 72.2 Est GFR ( Amer) 90.7 Est GFR (Non-Af Amer) 78.3 BUN/Creatinine Ratio 8.8 L Glucose 153 H Estimat Average Glucose Hemoglobin A1c Calcium 8.9 Magnesium 2.0 Total Bilirubin 1.3 H AST 226 H ALT 107 H Alkaline Phosphatase 128 H Troponin I < 0.015 Total Protein 7.8 Albumin 3.7 Globulin 4.1 H Albumin/Globulin Ratio 0.9 Lipase 141 Urine Color Dark Yellow Urine Appearance Cloudy A Urine pH 7.5 Ur Specific [place] 1.022 Urine Protein Negative Urine Glucose (UA) Negative Urine Ketones Trace H Urine Blood Negative Urine Nitrite Negative Urine Bilirubin 1+ H Urine Urobilinogen Negative Ur Leukocyte Esterase 1+ H Urine WBC (Auto) 5-10 H Urine RBC (Auto) 0-4 U Hyaline Cast (Auto) 5-10 H U Epithel Cells (Auto) >30 H Urine Bacteria (Auto) Negative Hepatitis C Ab Screen 04/05/20 04/05/20 04/05/20 05:41 05:41 05:41 WBC 6.65 RBC 3.86 L Hgb 12.1 Hct 35.4 L MCV 91.7 MCH 31.3 MCHC 34.2 RDW Std Deviation 41.7 RDW Coeff of Alfredo 12.3 Plt Count 257 MPV 9.5 Immature Gran % (Auto) 0.2 Neut % (Auto) 67.8 Lymph % (Auto) 22.9 [place] % (Auto) 7.8 Eos % (Auto) 1.1 Baso % (Auto) 0.2 Immature Gran # (Auto) 0.01 Neut # (Auto) 4.52 Lymph # (Auto) 1.52 [place] # (Auto) 0.52 Eos # (Auto) 0.07 Baso # (Auto) 0.01 PT 10.5 INR 1.0 Sodium 141 Potassium 4.1 D Chloride 109 H Carbon Dioxide 25 Anion Gap 7.0 BUN 7 Creatinine 0.74 Est Cr Clr Drug Dosing 79.4 Est GFR ( Amer) 104.2 Est GFR (Non-Af Amer) 89.9 BUN/Creatinine Ratio 9.0 L Glucose 105 H Estimat Average Glucose Hemoglobin A1c Calcium 8.4 L Magnesium Total Bilirubin 1.3 H AST 666 H ALT 516 H Alkaline Phosphatase 146 H Troponin I Total Protein 6.6 Albumin 3.0 L Globulin 3.6 Albumin/Globulin Ratio 0.8 L Lipase Urine Color Urine Appearance Urine pH Ur Specific [place] Urine Protein Urine Glucose (UA) Urine Ketones Urine Blood Urine Nitrite Urine Bilirubin Urine Urobilinogen Ur Leukocyte Esterase Urine WBC (Auto) Urine RBC (Auto) U Hyaline Cast (Auto) U Epithel Cells (Auto) Urine Bacteria (Auto) Hepatitis C Ab Screen 04/05/20 04/05/20 05:41 05:41 WBC RBC Hgb Hct MCV MCH MCHC RDW Std Deviation RDW Coeff of Alfredo Plt Count MPV Immature Gran % (Auto) Neut % (Auto) Lymph % (Auto) [place] % (Auto) Eos % (Auto) Baso % (Auto) Immature Gran # (Auto) Neut # (Auto) Lymph # (Auto) [place] # (Auto) Eos # (Auto) Baso # (Auto) PT INR Sodium Potassium Chloride Carbon Dioxide Anion Gap BUN Creatinine Est Cr Clr Drug Dosing Est GFR ( Amer) Est GFR (Non-Af Amer) BUN/Creatinine Ratio Glucose Estimat Average Glucose Pending Hemoglobin A1c Pending Calcium Magnesium Total Bilirubin AST ALT Alkaline Phosphatase Troponin I Total Protein Albumin Globulin Albumin/Globulin Ratio Lipase Urine Color Urine Appearance Urine pH Ur Specific [place] Urine Protein Urine Glucose (UA) Urine Ketones Urine Blood Urine Nitrite Urine Bilirubin Urine Urobilinogen Ur Leukocyte Esterase Urine WBC (Auto) Urine RBC (Auto) U Hyaline Cast (Auto) U Epithel Cells (Auto) Urine Bacteria (Auto) Hepatitis C Ab Screen Pending
[2020-04-05] MEDS ORDERED: INDOMETHACIN 50 MG SUPP PR ONE ×2 (09:17→12:38)
[2020-04-05] MEDS ORDERED: LIDOCAINE HCL 2% 2 ML VIAL/AMP(20MG/ML) INFIL ONE (09:22)
[2020-04-05] MEDS ORDERED: fentaNYL citrate 100 MCG/2 ML VIAL ONE (09:22)
[2020-04-05] MEDS ORDERED: PROPOFOL IV EMULSION 10 MG/ML 20 ML VIAL IV ONE (09:22)
[2020-04-05] MEDS ORDERED: DEXAMETHASONE SOD INJ 4 MG/ML VIAL ONE (09:22)
[2020-04-05] MEDS ORDERED: ONDANSETRON INJ 2 MG/ML 2 ML VIAL ONE (09:22)
--- NOTE | 2020-04-05 09:41 | Magnetic Resonance Report ---
MR MRCP HISTORY: 59 years-old Female acute cholecystitis, abnormal LFT's acute right upper quadrant abdomina l pain with clinical concern for acute cholecystitis. Elevated LFTs. COMPARISON: Right upper quadrant abdominal ultrasound 04/04/2020 TECHNIQUE: MRCP without the use of IV contrast was obtained according to institutional protocol. FINDINGS: Colored Leather Setter localizer images demonstrate mild right hemidiaphragmatic elevation. The lung bases appear susie r. No bowel dilation or bowel wall thickening. Suggestion of colonic diverticulosis. Soft tissues and bony structures appear unremarkable. No drainable fluid collection. The spleen, pancreas, adrenal gl ands, kidneys, aorta and IVC grossly appear unremarkable. Trace perihepatic free fluid. The liver is otherwise unremarkable. The gallbladder is distended measuring up to 8.6 cm in length. Cholelithiasis is noted within the distribution of the gallbladder neck. Gallbladder wall is mildly thickened measu ring 4 mm. There is no intrahepatic or extrahepatic biliary ductal dilation, choledocholithiasis or p ancreatic ductal dilation. The common bile duct measures the upper limits of normal at 6 mm and demon strates no filling defects. IMPRESSION: 1. Cholelithiasis with gallbladder distention, mild gallbladder wall thickening and pericholecystic f luid is suggestive of acute cholecystitis. 2. No choledocholithiasis, intrahepatic or extrahepatic biliary ductal dilation. ACT 112: Negative or not required by law. The above report was generated using voice recognition software. It may contain grammatical, syntax o r spelling errors. Electronically signed by: José Bland M.D. 04/05/2020 9:40 AM
[2020-04-05] MEDS ORDERED: fentaNYL citrate 100 MCG/2 ML VIAL IV PRN ×2 (09:53→12:22)
[2020-04-05] MEDS ORDERED: ONDANSETRON INJ 2 MG/ML 2 ML VIAL IV PRN ×2 (09:53→12:22)
[2020-04-05] MEDS ORDERED: ATROPINE SULFATE 0.1 MG/ML 10ML SYR IV PRN ×2 (09:53→12:22)
[2020-04-05] MEDS ORDERED: HYDROmorphone INJ 1 MG/ML SYRINGE IV PRN ×2 (09:53→12:22)
[2020-04-05] MEDS ORDERED: ePHEDrine sulfate 50 MG/ML AMP IV PRN ×2 (09:53→12:22)
--- NOTE | 2020-04-05 11:15 | Electrocardiogram Report ---
Test Reason : Blood Pressure : / mmHG Vent. Rate : 096 BPM Atrial Rate : 096 BPM P-R Int : 152 ms QRS Dur : 072 ms QT Int : 338 ms P-R-T Axes : 056 026 027 degrees QTc Int : 427 ms Poor data quality, interpretation may be adversely affected Normal sinus rhythm Normal ECG No previous ECGs available Confirmed by Dudley Barajas ([id number]) on 04/05/2020 11:15:04 AM Referred By: REFERRED SELF Confirmed By:Usama Barajas
[2020-04-05] MEDS ORDERED: BUPIVACAINE 0.5 % 5 MG/1 ML MPF 30ML VIAL ONE (11:37)
[2020-04-05] MEDS ORDERED: SCOPOLAMINE 1.5 MG TDSY ONE (12:16)
--- NOTE | 2020-04-05 13:20 | Operative Report ---
Post Operative Report Pre & Post Diagnosis Operation Date: 04/05/20 08:00 <No data on this case meets the specified criteria> I identified the patient and participated in the time-out.: Yes Procedure Operation Date: 04/05/20 08:00 Actual Procedures p Laparoscopic Cholecystectomy - Olayinka Muse DO, FACS s Endoscopic Retrograde Cholangiopancreato(Not Applicable) - Jefry Joseph MD Surgeon Jefry Joseph MD Feed Blender None Estimated Blood Loss 0 Findings See Below (CBD stone removed + sphincterotomy) Specimens None Description of Procedure ERCP I attest to the content of the Intraoperative Record and any orders documented therein. Any exceptions are noted below.
--- NOTE | 2020-04-05 13:31 | GI REPORT ---
Patient Name: Teena Bardales Procedure Date: 04/05/2020 9:55 AM Date of : 1960 Admit Type: Inpatient Age: 59 Gender: Female Attending MD: Jefry Joseph MD Procedure: ERCP Providers: Jefry Joseph MD Referring MD: Olayinka Dhillon Do Indications: Evaluation and possible treatment of bile duct stone(s), Suspected ascending cholangitis, Elevated liver enzymes Medicines: General Anesthesia Complications: No immediate complications. Estimated Blood Loss: Estimated blood loss: none. Procedure: Pre-Anesthesia Assessment: - Prior to the procedure, a History and Physical was performed, and patient medications, allergies and sensitivities were reviewed. The patient's tolerance of previous anesthesia was reviewed. - The risks and benefits of the procedure and the sedation options and risks were discussed with the patient. All questions were answered and informed consent was obtained. - Patient identification and proposed procedure were verified prior to the procedure by the physician and the nurse. The procedure was verified in the procedure room. - Pre-procedure physical examination revealed no contraindications to sedation. After obtaining informed consent, the scope was passed under direct vision. Throughout the procedure, the patient's blood pressure, pulse, and oxygen saturations were monitored continuously. The Scope was introduced through the mouth, and advanced to the duodenum and used to inject contrast into the bile duct. The ERCP was accomplished without difficulty. The patient tolerated the procedure well. Findings: The telephone answerer film was normal. The esophagus was successfully intubated under direct vision. The scope was advanced to a normal major papilla in the descending duodenum without detailed examination of the pharynx, larynx and associated structures, and upper GI tract. The upper GI tract was grossly normal. A 0.035 inch straight standard wire was passed into the biliary tree from the first attempt. The Fusion OMNI sphincterotome was passed over the guidewire and the bile duct was then deeply cannulated. Contrast was injected. I personally interpreted the bile duct images. Ductal flow of contrast was adequate. Image quality was adequate. Contrast extended to the main bile duct. The biliary orifice was stenotic. This appeared benign. Opacification of the common bile duct, gallbladder and entire biliary tree was successful. The maximum diameter of the ducts was 7 mm. The lower third of the main bile duct contained one stone. Biliary sphincterotomy was made with a monofilament traction (standard) sphincterotome using ERBE electrocautery. There was no post-sphincterotomy bleeding. The biliary tree was swept with an 11.5 mm balloon starting at the bifurcation. One stone was removed. No stones remained. Sludge was swept from the duct. Indomethacin 100 mg was given via suppository to decrease the risk of post-ERCP pancreatitis (PEP). PD was not cannulated. Impression: - Benign biliary papillary stenosis. - Choledocholithiasis and sludge was found. Complete removal was accomplished by biliary sphincterotomy and balloon extraction. Recommendation: - Avoid aspirin and nonsteroidal anti-inflammatory medicines for 5 days. - Proceed with Lap susan. - Recall GI if needed. Jefry Joseph MD 04/05/2020 1:31:27 PM This report has been signed electronically. Note Initiated On: 04/05/2020 9:55 AM Number of Addenda: 0 I attest to the content of the Intraoperative Record and orders documented therein, exceptions below {[id number]}
--- NOTE | 2020-04-05 14:08 | Fluoroscopy Report ---
FL ERCP biliary ductal HISTORY: 59 years-old Female ERCP DONE IN THE O.R. acute cholecystitis COMPARISON: MRCP of same day TECHNIQUE: 11 spot fluoroscopic images of the abdomen were obtained utilizing 23.3 seconds fluoroscop y time FINDINGS: Endoscope is noted within the duodenum. Cannulation of the common bile duct. Injection of contrast de monstrates no intrahepatic or extrahepatic biliary ductal dilation, or stricture. There are a few elias ent filling defects in the common bile duct suggestive of air bubbles. Multiple intraluminal filling defects are noted within the gallbladder compatible with previously noted cholelithiasis/gallbladder sludge. Balloon sweep of the common bile duct. There is contrast noted within the duodenum. No contra st extravasation to suggest leak. IMPRESSION: Fluoroscopic assistance as above. Please see procedural report for further details. ACT 112: Negative or not required by law. The above report was generated using voice recognition software. It may contain grammatical, syntax o r spelling errors. Electronically signed by: José Bland M.D. 04/05/2020 2:07 PM
--- NOTE | 2020-04-05 14:39 | Operative Report ---
PG Post Operative Report Pre & Post Diagnosis Operation Date: 04/05/20 08:00 Pre-Op Diagnosis: Acute cholecystitis Post-Op Diagnosis: Acute cholecystitis I identified the patient and participated in the time-out.: Yes Procedure Operation Date: 04/05/20 08:00 Actual Procedures p Laparoscopic Cholecystectomy(Not Applicable) - Olayinka Muse DO, FACS Surgeon Olayinka Muse DO, FACS Model Maker [employer] Lyubov Duffy Estimated Blood Loss 10 Findings Consistent with Post-Op Diagnosis Acute calculus cholecystitis. Critical view of safety obtained, cystic duct and artery doubly clipped and divided. Good hemostasis. Specimens Gallbladder Anesthesia Type General Complications none Disposition Accompanied Patient To Recovery: No Disposition: Recovery Room Indications 59-year-old female presented to the emergency department with signs and symptoms of acute calculus cholecystitis. She had an elevations in her transaminitis and bilirubin. Plan for laparoscopic cholecystectomy with possible cholangiogram following ERCP in the operating room. The risks of the procedure were discussed, all questions were answered, and the patient agreed to proceed with surgery as planned. Description of Procedure The patient was properly identified, consented, and taken to the operating room where she was placed in the supine position. General endotracheal anesthesia was induced. SCDs and a safety belt were placed. Preoperative antibiotics were administered. The patient's abdomen was prepped and draped in the standard sterile fashion. A surgical timeout was performed and all parties were in agreement that this was the correct patient and procedure to be performed and we continued as planned. An incision was made superior and to the left of the umbilicus overlying the rectus muscle and the Veress needle was inserted. Saline drop test confirmed entry into the peritoneum. The abdomen was insufflated with carbon dioxide which the patient tolerated without incident. The abdomen was then entered using the Optiview technique and a 5 mm trocar. The laparoscope was inserted and no damage from initial trocar or Veress needle placement was noted, no gross abnormalities were noted within the 4 quadrants of the abdomen. An 11 mm port was placed in the subxiphoid position and two 5 mm ports were then placed in the right subcostal position. The patient was placed in reverse Trendelenburg position and rotated towards the left. The gallbladder was acutely and moderately inflamed. The gallbladder was aspirated to allow for retraction. The dome of the gallbladder was retracted towards the left upper quadrant and the infundibulum was retracted toward the right lower quadrant revealing Calot's triangle. Peritoneal attachments were taken down with electrocautery and blunt dissection. The cystic duct and artery were circumferentially dissected. A window of safety was obtained showing the cystic duct entering the gallbladder with no aberrant structures noted. The cystic duct and artery were doubly clipped and divided. The gallbladder was then lifted off the gallbladder fossa with electrocautery. The gallbladder was placed in an Endo Catch bag and removed through the subxiphoid port site. The right upper quadrant was irrigated and hemostasis was found to be good. 5 mm trochars were removed under direct visualization and the abdomen was allowed to collapse. The subxiphoid port site fascia was closed with 0 Vicryl suture utilizing the Torin-Muriel closure device. The wound was irrigated, and the skin of all ports was closed with 4-0 Monocryl subcuticular sutures. Dermabond was placed over the wounds. The patient was extubated in the operating room and taken to the PACU where she recovered without apparent incident. All sponge, instrument and needle counts were correct at the conclusion of the procedure. The patient tolerated the procedure well. The physician's welder assistant was present and scrubbed for the entirety of the case and was essential in positioning the patient, prepping and draping, retraction and exposure, driving the laparoscope, removal of the gallbladder, closure the incisions, and placement of the dressings. I attest to the content of the Intraoperative Record and any orders documented therein. Any exceptions are noted below.
[2020-04-05] MEDS ORDERED: LACTATED RINGER'S 1,000 ML IV SCH (15:55)
[2020-04-05] MEDS ORDERED: OXYCODONE/ACETAMINOPHEN 5mg/325mg TAB PO PRN ×2 (15:55)
[2020-04-05] MEDS ORDERED: MoRPHine SULFATE 2 MG/ML CARP IV PRN (15:55)
--- NOTE | 2020-04-05 16:02 | Anesthesiology Progress Note ---
Date of Service April 05, 2020 Anesthesia Post Procedure Vital Signs Vital Signs: Temp Pulse Pulse Pulse Resp BP BP 04/05/20 15:40 69 16 127/68 04/05/20 15:30 69 16 127/68 04/05/20 15:21 36.3 C L 76 16 116/82 04/05/20 07:15 04/05/20 07:11 36.7 C 81 18 04/05/20 02:13 36.9 C 95 H 16 04/05/20 01:38 103 H 18 109/69 04/05/20 01:00 97 H 20 115/72 04/05/20 00:31 104 H 18 115/84 04/05/20 00:00 101 H 17 124/75 04/04/20 23:31 106 H 13 121/69 04/04/20 23:00 94 H 19 121/74 04/04/20 22:00 102 H 23 129/70 04/04/20 21:51 95 H 24 137/79 04/04/20 20:44 36.6 C 105 H 18 162/76 H BP Pulse Ox Pulse Ox 04/05/20 15:40 98 04/05/20 15:30 94 04/05/20 15:21 100 04/05/20 07:15 97 04/05/20 07:11 107/70 97 04/05/20 02:13 124/75 96 04/05/20 01:38 97 04/05/20 01:00 04/05/20 00:31 94 04/05/20 00:00 95 04/04/20 23:31 95 04/04/20 23:00 97 04/04/20 22:00 96 04/04/20 21:51 100 04/04/20 20:44 100 Pain Intensity Right Abdomen: Pain Intensity: 2 Transfer of Care Handoff Completed per policy Notes Mental Status: alert / awake / arousable and participated in evaluation Patient Amnestic to Procedure: Yes Nausea / Vomiting: adequately controlled Pain: adequately controlled Airway Patency, RR, SpO2: stable & adequate BP & HR: stable & adequate Hydration State: stable & adequate Anesthetic Complications: no major complications apparent and Pt Satisfied with anesthetic care
[2020-04-05] MEDS: SODIUM CHLORIDE 0.9% 1000ML 1,000 ML IV SCH (16:11)
[2020-04-05] MEDS: ONDANSETRON INJ 2 MG/ML 2 ML VIAL IV PRN ×2 (16:12→23:20)
--- NOTE | 2020-04-05 16:24 | Hospitalist Progress Note ---
Date of Service April 05, 2020 Assessment & Plan (1) Abdominal pain, acute, right upper quadrant: s/p lap susan for acute susan on 04/05 As per gen surg (2) Gallbladder anomaly: See above (3) Elevated LFTs: See above (4) Total bilirubin, elevated: See above (5) Cholelithiases: See above (6) Leukocytosis: See above (7) Hyperglycemia: Blood sugar 153 upon admission. We will check hemoglobin A1c Admission and Anticipated Discharge Date Admission Date: April 05, 2020 Subjective Pt had some n/v s/p trial of PO fluids post op. Pt denies fever, SOB, chest pain, abd pain, c/d, LE pain or swelling. Review of Systems Review of Systems: Pertinent positives and negatives reviewed in HPI--all others negative Physical Exam Constitutional: WD/WN, vitals as above Eyes: normal visual joaquin by confrontation and + anicteric sclerae Neck: normal visual inspection and trachea midline Respiratory: normal respiratory effort, lungs clear to auscultation Cardiovascular: Rate/Rhythm: regular rate and regular rhythm Gastrointestinal (Abdomen): Inspection/Auscultation: abdomen not distended Percussion/Palpation: abdomen soft; abdomen nontender Musculoskeletal: Head/Neck/Chest: normocephalic and head atraumatic negative for edema, peripheral pulses intact Skin: no rashes, warm and dry Neurologic: awake; not confused Speech / Cognition: normal speech Psychiatric: A+Ox3, euthymic affect Results & Data Results & Data ([facility]) Vital Signs (Past 12 Hours) Vital Signs Temp Pulse Pulse Resp BP BP Pulse Ox 04/05/20 15:40 69 16 127/68 98 04/05/20 15:30 69 16 127/68 94 04/05/20 15:21 36.3 C L 76 16 116/82 100 04/05/20 07:15 04/05/20 07:11 36.7 C 81 18 107/70 97 Pulse Ox 04/05/20 15:40 04/05/20 15:30 04/05/20 15:21 04/05/20 07:15 97 04/05/20 07:11 PG Care Time/CCT Total # of Minutes Spent Total Time Spent with Patient: Total time spent is greater than 50% in coordination of care (as documented) at patient's floor/unit and/or counseling patient: Coding Level of Care Code 09841 Subseq Hosp Care Lvl 2 Diagnoses Abdominal pain, acute, right upper quadrant R10.11 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
[2020-04-06] MEDS: SODIUM CHLORIDE 0.9% 1000ML 1,000 ML IV SCH (02:11)
[2020-04-06 07:23] LABS: Basophils # (auto) 0.01 K/uL (0-0.2); Basophils % (auto) 0.1 %; Eosinophils # (auto) 0.05 K/uL (0-0.5); Eosinophils % (auto) 0.5 %; Hematocrit (blood only) 30.9 % (37-47); Hemoglobin 10.4 g/dL (12.0-16.0); Immature Granulocytes # (auto) 0.02 K/uL (0.00-0.02); Immature Granulocytes % (auto) 0.2 %; Lymphocytes # (auto) 1.71 K/uL (1.2-3.4); Lymphocytes % (auto) 18.4 %; Mean Corpuscular Hemoglobin 31.1 pg (25-34); Mean Corpuscular Hgb Conc 33.7 g/dL (32-36); Mean Corpuscular Volume 92.5 fL (80-100); Mean Platelet Volume 9.7 fL (7.4-10.4); Monocytes # (auto) 0.64 K/uL (0.11-0.59); Monocytes % (auto) 6.9 %; Neutrophils # (auto) 6.86 K/uL (1.4-6.5); Neutrophils % (auto) 73.9 %; Platelet Count 240 K/uL (130-400); RDW Coefficient of Variation 12.4 % (11.5-14.5); RDW Standard Deviation 42.2 fL (36.4-46.3); Red Blood Count 3.34 M/uL (4.2-5.4); White Blood Count 9.29 K/uL (4.8-10.8)
[2020-04-06] MEDS: PIPERACILLIN/TAZOBACTAM 3.375 GM in DEXTROSE 5% 100 ML IV SCH (07:28)
[2020-04-06 07:30] LABS: Partial Thromboplastin Time 26.8 Seconds (21.0-31.0); Prothrombin Time 10.8 Seconds (9.0-12.0)
[2020-04-06 07:39] VITALS: BP 105/68; TEMP 98.1; O2SAT 100
[2020-04-06 07:50] LABS: Albumin Level 2.5 gm/dl (3.4-5.0); BUN Creatinine Ratio 8.8 (10-20); Calcium 8.1 mg/dl (8.5-10.1); Creatinine Clr Calc Pharmacy 85.1 ml/min; Est GFR (Non-African American) 96.6; Magnesium 2.1 mg/dl (1.8-2.4); Potassium 3.9 mmol/L (3.5-5.1)
[2020-04-06 07:53] LABS: Albumin Globulin Ratio 0.8 (0.9-2); Bilirubin,Total 0.8 mg/dl (0.2-1); Globulin 3.3 gm/dl (2.5-4.0); Total Protein 5.8 gm/dl (6.4-8.2)
[2020-04-06 08:02] LABS: Estimated Average Glucose 117 mg/dl; Hemoglobin A1C 5.7 % (4.5-5.6)
[2020-04-06 08:13] LABS: Estimated Average Glucose 117 mg/dl; Hemoglobin A1C 5.7 % (4.5-5.6)
--- NOTE | 2020-04-06 08:37 | Surgery Progress Note ---
Date of Service April 06, 2020 Assessment & Plan (1) Acute cholecystitis: POD#1 laparoscopic cholecystectomy and ERCP WBC 9.2, LFT's downtrending- Tbili (0.8), AST: 151, ALT: 273, Alkp: 94 Pt with some emery-incisional soreness, but is tolerable Will advance diet as tolerates today Will leave discharge instructions for patient to follow up with Dr. Muse within 2 weeks Dispo planning per medicine clearance Supervising Physician Co-Signing Physician Notes Patient seen and examined, labs reviewed, agree with above. POD #1 laparoscopic cholecystectomy and ERCP for acute cholecystitis and choledocholithiasis. O david doing well, feels much better. Some soreness around her epigastric incision with some ecchymosis. She tolerated a regular diet. LFTs downtrending, remainder of labs unremarkable. On exam incisions are healing well, some ecchymosis to epigastric incision but no infection. Plan to discharge to home with follow-up in 2 weeks. Activity restrictions and wound care instructions and return precautions given. Subjective Patient feels pretty well today. Has some emery-incisional soreness, that is otherwise tolerable. She had some postop nausea yesterday evening, but feels much better today. Physical Exam Physical Exam: awake/alert Gastrointestinal (Abdomen): Inspection/Auscultation: + abdominal surgical incision (c/d/i with dermabond overtop, some ecchymosis around epigastric in cision) Percussion/Palpation: + abdomen tender (some ttp emery-incisionally) and abdomen soft Results & Data Vital Signs (Past 12 Hours) Vital Signs Temp Pulse Resp BP Pulse Ox 04/06/20 07:39 36.7 C 54 L 16 105/68 100 04/06/20 04:10 36.8 C 70 14 101/64 97 04/06/20 00:14 36.7 C 62 14 104/68 97 PG Care Time/CCT Total # of Minutes Spent Total Time Spent with Patient: Total time spent is greater than 50% in coordination of care (as documented) at patient's floor/unit and/or counseling patient: Coding Level of Care Code None Diagnoses Acute cholecystitis K81.0
--- NOTE | 2020-04-06 09:14 | Gastroenterology Progress Note ---
Date of Service April 06, 2020 Assessment & Plan Admission and Anticipated Discharge Date Admission Date: April 05, 2020 Anticipated date of discharge: 04/07/20 Supervising Physician Co-Signing Physician Notes 59 yo fm s/p lap susan and ercp on 04/05/20 with a sphincterotomy. Stable hgb and bun. Downtrending lft's. Ok to dc home with slow advancement of diet once she is passing gas and having a bowel movement. Subjective Patient seen and examined. No acute complaints. Feeling better than admission. Has not passed gas yet. Review of Systems Review of Systems: All systems reviewed & are unremarkable except as noted in HPI & below Physical Exam Physical Exam: Well nourished fm in nad Constitutional: WD/WN, vitals as above Eyes: PERRL, conjunctivae normal, anicteric sclerae Respiratory: normal respiratory effort, lungs clear to auscultation Cardiovascular: RRR, no murmur, no edema Gastrointestinal (Abdomen): normal bowel sounds, soft, nontender, no hepatosplenomegaly Surgical scars Skin: no rashes, warm and dry Neurologic: PERRL, EOMI, accommodation nl, no face palsy, no dysarthria Results & Data ([facility]) Vital Signs (Past 12 Hours) Vital Signs Temp Pulse Resp BP Pulse Ox 04/06/20 07:39 36.7 C 54 L 16 105/68 100 04/06/20 04:10 36.8 C 70 14 101/64 97 04/06/20 00:14 36.7 C 62 14 104/68 97 Labs reviewed - labs are downtrending
[2020-04-06] MEDS: FAMOTIDINE 20 MG in SYRINGE 3 ML IV SCH (09:19)
--- NOTE | 2020-04-06 10:43 | Discharge Summary ---
Date of Service April 06, 2020 Admission HPI Per Admitting Provider .The patient is a 59-year-old female with a past medical history including HRT. She presents to the emergency department symptoms as noted above. She describes the pain is a worse that she is never experienced, including that of delivery. She had no improvement with Pepcid or [place] because of worsening pain, presented emergency department for assessment. In the emergency department, patient underwent work-up including laboratories with the following significant abnormalities: WBC 12.57, glucose 153, total bilirubin 1.3, AST 226, ALT 107, alk phos 128 and globulin 4.1. Imaging studies included a normal chest x-ray and a gallbladder ultrasound which had impression of cholelithiasis within a distended gallbladder, with no definitive sonographic evidence of acute cholecystitis. Patient then underwent an MRCP, which also demonstrated cholelithiasis within a distended gallbladder, and did not find obstruction in the biliary ductal system. Principal Diagnosis Pt is feeling much better today. She has had no further n/v. She tolerated a liquid diet this AM without issue. No pain. Pt denies fever, SOB, chest pain, abd pain, c/d, LE pain or swelling. She would like to go home. Discharge Exam Constitutional WD/WN, vitals as above Eyes normal visual joaquin by confrontation and + anicteric sclerae Neck normal visual inspection and trachea midline Respiratory normal respiratory effort, lungs clear to auscultation Cardiovascular Rate/Rhythm: regular rate and regular rhythm Gastrointestinal (Abdomen) Inspection/Auscultation: abdomen not distended Percussion/Palpation: abdomen soft; abdomen nontender Musculoskeletal Head/Neck/Chest: normocephalic and head atraumatic Skin no rashes, warm and dry Neurologic awake; not confused Speech / Cognition: normal speech Psychiatric A+Ox3, euthymic affect Discharge Data Allergies Allergy/AdvReac Type Severity Reaction Status Date / Time No Known Allergies Allergy Unverified 04/04/20 23:25 Consultations 04/04/20 23:28 ED Decision to Admit Stat 04/05/20 02:08 Consult Case Management - Discharge Planning Routine Consult Gastroenterology Routine Consult General Surgery Routine Procedures Performed Operation Date: 04/05/20 08:00 Actual Procedures p Laparoscopic Cholecystectomy(Not Applicable) - Olayinka Muse DO, FACS s Endoscopic Retrograde Cholangiopancreatogram(Not Applicable) - Jefry Joseph MD Ordered Studies 04/04/20 21:39 US gallbladder Stat 04/05/20 00:28 MR MRCP Stat 04/05/20 09:00 FL ERCP biliary ductal Routine Hospital Course (1) Abdominal pain, acute, right upper quadrant: s/p lap susan for acute susan on 04/05 As per gen surg Uncomplicated procedure (2) Gallbladder anomaly: See above (3) Elevated LFTs: See above (4) Total bilirubin, elevated: See above (5) Cholelithiases: See above (6) Leukocytosis: See above (7) Hyperglycemia: Blood sugar 153 upon admission. A1c 5.7 Total Time Total Time Spent Total Time Spent (In Minutes): >30 Total Time Includes: Examination of the Patient, Discharge Planning, Medication Reconciliation and Other Discharge Plan Discharge Items Patient Disposition: Home - Self-Care Reason For Visit: ACUTE CHOLECYSTITIS Discharge Diagnosis: Acute cholecystitis Condition on Discharge: Good Activity: Per Instructions section Lifting: No more than 10 pounds Bathing Comment: may shower; no soaking in tubs Exercise/Sports: Wait until after follow-up appointment Driving/Machine Use: Resume 3 days after discharge Non-emergency contact: Surgeon Call non-emergency contact if: you have any medication questions, your symptoms worsen, your pain is not controlled, your pain is worsening, you have a fever, your temperature is above 101.5, your wound has increased redness, your wound has increased drainage and your wound pain has increased Follow-up/Referrals: Olayinka Muse DO, FACS [Physician] - (Please call to schedule follow up in clinic within 2 weeks) Vidal Ordaz Jr, DO [Primary Care Provider] - Diet: Regular Addtl Attending Provider Instructions: You may purchase Tylenol or Ibuprofen over the counter if needed for pain. Ibuprofen 400mg orally every 6 hours, as needed for pain. Tylenol 650mg orally every 6 hours as needed for pain. Do not exceed more than 3grams of Tylenol within a 24 hour time period. Pending Studies at Discharge: Yes Studies:: surgical pathology Stand-Alone Forms: [facility] [employer], Smoking Cessation Medications and DC Order Prescriptions: Continued estradiol 0.5 mg tablet 0.5 mg PO BID RF: 0 progesterone micronized 100 mg capsule 100 mg PO HS RF: 0 Discharge Orders: Discharge Order (Routine); Ordered 04/06/20 Ordered By: Gillian Javier Admission Data Admit Date/Time: 04/05/20 00:26 Attending Provider: Gillian Javier Admit Provider: Jeromy Sykes Primary Care Provider: Vidal Ordaz Jr Other Providers: Jeromy Sykes ; Jefry Joseph ; Olayinka Muse Other Interventions: Discharge Summary Assessment (RN) Last Done: 04/06/20 10:49 DC Date/Time DO NOT enter until pt leaves facility: 04/06/20 11:48 Coding Level of Care Code D/C Day Management >30 mins Diagnoses Abdominal pain, acute, right upper quadrant R10.11 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
[2020-04-06 10:50] VITALS: PULSE 82
== END 2020-04-06 11:48 | disposition home or self-care (01) | DRG 419 ==
LOC: ED 20:32 → 3E 04-05 00:26 → SUATTDRO 04-05 00:26 → 3E 04-05 01:38